=== PATIENT | female | born 1950 | race Hispanic/Latino ===

== ENCOUNTER → 2018-08-17 | Outpatient (CLI) | payer OTHER ==
[~2018-08-17] MED LIST: IOHEXOL 350 MG/ML 100ML INFUS..BTL IV ONE
== END | disposition home or self-care (01) ==
LOC: RAH 09:44
PROVIDERS: ATTEND Internal Medicine Gastroenterology
DX: N28.1 Cyst of kidney, acquired (principal); K76.89 Other specified diseases of liver; I70.90 Unspecified atherosclerosis; M47.895 Other spondylosis, thoracolumbar region
CPT/HCPCS: 74170; Q9967

== ENCOUNTER → 2019-11-26 | Outpatient (CLI) | payer MEDICARE | END | disposition home or self-care (01) | LOC: RAH 08:30 | PROVIDERS: ATTEND Internal Medicine Gastroenterology | DX: K21.9 Gastro-esophageal reflux disease without esophagitis (principal); K76.0 Fatty (change of) liver, not elsewhere classified; K76.89 Other specified diseases of liver; Z90.49 Acquired absence of other specified parts of digestive tract | CPT/HCPCS: 74240; 76700 ==

== ENCOUNTER → 2020-05-10 | Outpatient (CLI) | payer MEDICARE | END | disposition home or self-care (01) | LOC: RAH 08:47 | PROVIDERS: ATTEND Urology | DX: N28.1 Cyst of kidney, acquired (principal); R31.9 Hematuria, unspecified | CPT/HCPCS: 74178; Q9967 ==

== ENCOUNTER → 2022-12-16 | Outpatient (CLI) | payer MEDICARE | END | disposition home or self-care (01) | LOC: RAH 11:00 | PROVIDERS: ATTEND Internal Medicine | DX: M75.22 Bicipital tendinitis, left shoulder (principal); M79.602 Pain in left arm; M25.512 Pain in left shoulder | CPT/HCPCS: 73030 ==

== ENCOUNTER → 2023-06-16 | Outpatient (CLI) | payer MEDICARE ==
[2023-06-16 12:01] LABS: CREATININE 0.8 mg/dL (0.5-1.5); POTASSIUM 3.5 mmol/L (3.5-5.1)
== END | disposition home or self-care (01) ==
LOC: LAB 10:33
PROVIDERS: ATTEND Student in an Organized Health Care Education/Training Program
DX: I10 Essential (primary) hypertension (principal)
CPT/HCPCS: 36415; 80048

== ENCOUNTER → 2023-06-19 | Outpatient (CLI) | payer MEDICARE | END | disposition home or self-care (01) | LOC: RAH 10:00 | PROVIDERS: ATTEND Student in an Organized Health Care Education/Training Program | DX: R07.9 Chest pain, unspecified (principal); M47.815 Spondylosis without myelopathy or radiculopathy, thoracolumbar region | CPT/HCPCS: 75574; Q9967 ==

== ENCOUNTER → 2024-10-09 | Outpatient (CLI) | payer MEDICARE, OTHER | END | disposition home or self-care (01) | LOC: SHCH 10:09 | PROVIDERS: ATTEND Student in an Organized Health Care Education/Training Program | DX: R06.09 Other forms of dyspnea (principal) | CPT/HCPCS: 93306 ==